=== PATIENT | female | born 1955 | race Caucasian/White ===

== ENCOUNTER 2016-09-12 10:55 | Emergency (ER) | payer OTHER ==
[~2016-09-12] VITALS: Ht 165.1 cm; Wt 65.6 kg
[2016-09-12 11:01] VITALS: BP 146/85; PULSE 77; RESP 16; TEMP 98.7; O2SAT 97
--- NOTE | 2016-09-12 11:38 | PD ---
HPI Chief Complaint: Pain: Acute or Chronic Time Seen by Provider: 11:37 Travel History International Travel<30 days: Yes Contact w/Intl Traveler<30days: Yes Name of Country Traveled to: [place] Traveled to known affect area: No History of Present Illness HPI 61-year-old female presents the emergency department with reports of right breast and chest pain which has been occurring over the past week. Patient denies any specific history of trauma. Patient is visiting from [place], having flown in one week ago. Patient denies lower extremity pain, cramping, or edema. Patient describes the pain as a burning which comes and goes in the right breast, although she describes a feeling of a band around the chest yesterday. Patient states doesn't seem to be worse with exertion but it is worse with a deep breath, and with leaning forward. Patient is concerned she is flying back to [place] tomorrow morning and wants to make sure everything is okay prior to getting on the plane. He has no history of cardiac issues in the past. She has no known drug allergies. PFSH Past Medical History Medical History: Denies Significant Hx Hx Anticoagulant Therapy: No Diminished Hearing: No Immunizations Current: Yes Tetanus Vaccination: Unknown Influenza Vaccination: No ?: Not Menopausal: Yes Past Surgical History Other Surgery: Yes (MELENOMA STOMACHE) Social History Alcohol Use: Yes (OCC) Tobacco Use: No Substance Use: No Allergies-Medications (Allergen,Severity, Reaction): Coded Allergies: No Known Allergies (Unverified , 09/12/16) Reported Meds & Prescriptions Reported Meds & Active Scripts Active No Active Prescriptions or Reported Medications Review of Systems Except as stated in HPI: all other systems reviewed are Neg General / Constitutional: No: Fever Eyes: No: Visual changes HENT: No: Headaches Cardiovascular: Positive: Chest Pain or Discomfort, No: Palpitations, Irregular Rhythm, Tachycardia, Diaphoresis, Syncope, Dyspnea on exertion, Edema , Claudication Respiratory: No: Cough (see history present illness.), Shortness of Breath, Wheezing Gastrointestinal: No: Abdominal Pain Genitourinary: No: Dysuria Musculoskeletal: No: Pain Skin: No Rash Neurologic: No: Weakness Psychiatric: No: Depression Endocrine: No: Polydipsia Hematologic/Lymphatic: No: Easy Bruising Physical Exam Narrative GENERAL: Patient appears somewhat anxious but otherwise in no acute distress. SKIN: Warm and dry. Normal color. Normal turgor. Right breast is examined with nursing staff supervisor dry cell assembly, showing no obvious signs of infection, rash, or discharge. There is no specific point tenderness. HEAD: Atraumatic. Normocephalic. EYES: Pupils equal and round. No scleral icterus. No injection or drainage. ENT: No nasal bleeding or discharge. Mucous membranes pink and moist. Pharynx is clear. NECK: Trachea midline. Supple and nontender. CARDIOVASCULAR: Regular rate and rhythm. No murmurs gallops or rubs. RESPIRATORY: No accessory muscle use. Clear to auscultation. Breath sounds equal bilaterally. GASTROINTESTINAL: Abdomen soft, non-tender, nondistended. Hepatic and splenic margins not palpable. MUSCULOSKELETAL: Extremities without clubbing, cyanosis, or edema. No obvious deformities. Negative Homans sign bilaterally. NEUROLOGICAL: Awake and alert. No obvious cranial nerve deficits. Motor grossly within normal limits. Five out of 5 muscle strength in the arms and legs. Normal speech. PSYCHIATRIC: Appropriate mood and affect; insight and judgment normal. Data Data Last Documented VS Vital Signs Date Time Temp Pulse Resp B/P Pulse Ox O2 Delivery O2 Flow Rate FiO2 09/12/16 12:25 68 18 169/79 94 Room Air 161/79 09/12/16 11:01 98.7 Orders Electrocardiogram (09/12/16 11:54) Ckmb (Isoenzyme) Profile (09/12/16 11:54) Complete Blood Count With Diff (09/12/16 11:54) Comprehensive Metabolic Panel (09/12/16 11:54) Magnesium (Mg) (09/12/16 11:54) Prothrombin Time / Inr (Pt) (09/12/16 11:54) Act Partial Throm Time (Ptt) (09/12/16 11:54) Troponin I (09/12/16 11:54) Ecg Monitoring (09/12/16 11:54) Bilateral Bp Monitoring (09/12/16 11:54) Iv Access Insert/Monitor (09/12/16 11:54) Oximetry (09/12/16 11:54) Oxygen Administration (09/12/16 11:54) Aspirin Chew (Aspirin Chew) (09/12/16 12:00) Sodium Chloride 0.9% Flush (Ns Flush) (09/12/16 12:00) Ct Pulmonary Angiogram (09/12/16 11:54) Iohexol 350 Inj (Omnipaque 350 Inj) (09/12/16 13:04) Labs Laboratory Tests Test 09/12/16 12:00 White Blood Count 7.8 TH/MM3 Red Blood Count 4.66 MIL/MM3 Hemoglobin 13.8 GM/DL Hematocrit 41.0 % Mean Corpuscular Volume 88.0 FL Mean Corpuscular Hemoglobin 29.7 PG Mean Corpuscular Hemoglobin 33.7 % Concent Red Cell Distribution Width 12.1 % Platelet Count 269 TH/MM3 Mean Platelet Volume 8.8 FL Neutrophils (%) (Auto) 66.1 % Lymphocytes (%) (Auto) 26.5 % Monocytes (%) (Auto) 6.4 % Eosinophils (%) (Auto) 0.4 % Basophils (%) (Auto) 0.6 % Neutrophils # (Auto) 5.2 TH/MM3 Lymphocytes # (Auto) 2.1 TH/MM3 Monocytes # (Auto) 0.5 TH/MM3 Eosinophils # (Auto) 0.0 TH/MM3 Basophils # (Auto) 0.0 TH/MM3 CBC Comment DIFF FINAL Differential Comment Prothrombin Time 10.7 SEC Prothromb Time International 1.0 RATIO Ratio Activated Partial 27.8 SEC Thromboplast Time Sodium Level 143 MEQ/L Potassium Level 3.5 MEQ/L Chloride Level 104 MEQ/L Carbon Dioxide Level 30.9 MEQ/L Anion Gap 8 MEQ/L Blood Urea Nitrogen 11 MG/DL Creatinine 0.60 MG/DL Estimat Glomerular Filtration 102 ML/MIN Rate Random Glucose 106 MG/DL Calcium Level 8.8 MG/DL Magnesium Level 2.5 MG/DL Total Bilirubin 0.4 MG/DL Aspartate Amino Transf 12 U/L (AST/SGOT) Alanine Aminotransferase 16 U/L (ALT/SGPT) Alkaline Phosphatase 69 U/L Total Creatine Kinase 64 U/L Troponin I LESS THAN 0.02 NG/ML Total Protein 7.5 GM/DL Albumin 3.8 GM/DL [facility] Medical Decision Making Medical Screen Exam Complete: Yes Emergency Medical Condition: Yes Differential Diagnosis Right breast/chest pain. Possible cardiac syndrome. Possible PE. Muscle skeletal pain. Narrative Course Patient is medically stable at time of exam. Patient is discussed with Dr. Carrasquillo. Labs ordered including CBC, CMP, and cardiac panel. EKG is ordered as well as CT angiogram. EKG shows normal sinus rhythm with nonspecific ST changes. This is reviewed by Dr. Carrasquillo. IV access is obtained. CBC is unremarkable. CMP is unremarkable. Coagulation studies are normal. Troponin is less than 0.02. CTA is unremarkable for acute process. Patient is felt stable to be discharged home and return if without concern. Patient will be given ibuprofen 600 mg 4 times a day when necessary pain. Patient should follow with her primary care physician on return to [place] as needed. Diagnosis Primary Impression: Chest pain, atypical Referrals: Primary Care Physician Patient Instructions: Chest Pain (DC), General Instructions Additional Instructions: CBC is unremarkable. CMP is unremarkable. Coagulation studies are normal. Troponin is less than 0.02. CTA is unremarkable for acute process. Patient is felt stable to be discharged home and return if without concern. Patient will be given ibuprofen 600 mg 4 times a day when necessary pain. Patient should follow with her primary care physician on return to [place] as needed. Med/Other Pt SpecificInfo: Prescription(s) given Scripts No Active Prescriptions or Reported Meds Disposition: DISCHARGE HOME Condition: Stable Rogers Ivan September 12, 2016 11:38
[2016-09-12] MEDS ORDERED: ASPIRIN 81 MG CHEW TAB PO ONE (12:00)
[2016-09-12] MEDS ORDERED: SODIUM CHLORIDE 0.9% FLUSH 10 ML FLUSH IVF PRN (12:00)
[2016-09-12 12:08] LABS: AUTOMATED NEUTROPHIL # 5.2 TH/MM3 (1.8-7.7); BASOPHIL % 0.6 % (0.0-2.0); EOSINOPHIL % 0.4 % (0.0-4.0); HEMO FLAGS DIFF FINAL; LYMPH % 26.5 % (9.0-44.0); LYMPHOCYTE # 2.1 TH/MM3 (1.0-4.8); MEAN CORPUSCULAR HEMOGLOBIN 29.7 PG (27.0-34.0); MEAN CORPUSCULAR HGB CONC 33.7 % (32.0-36.0); MONO % 6.4 % (0.0-8.0); NEUT % 66.1 % (16.0-70.0); PLATELET COUNT 269 TH/MM3 (150-450); RED BLOOD COUNT 4.66 MIL/MM3 (4.00-5.30); RED CELL DISTRIBUTION WIDTH 12.1 % (11.6-17.2); WHITE BLOOD COUNT 7.8 TH/MM3 (4.0-11.0)
[2016-09-12 12:18] LABS: CHLORIDE 104 MEQ/L (98-107); POTASSIUM 3.5 MEQ/L (3.5-5.1); SODIUM (NA) 143 MEQ/L (136-145)
[2016-09-12 12:22] LABS: ANION GAP 8 MEQ/L (5-15); APTT (PATIENT) 27.8 SEC (24.3-30.1); BICARBONATE 30.9 MEQ/L (21.0-32.0); BLOOD UREA NITROGEN 11 MG/DL (7-18); MAGNESIUM 2.5 MG/DL (1.5-2.5); PROTHROMBIN TIME - PATIENT 10.7 SEC (9.8-11.6)
[2016-09-12 12:25] VITALS: BP_SYST 161; BP_SYST 169; BP_DIAS 79; PULSE 68; RESP 18; O2SAT 94
[2016-09-12 12:25] LABS: ALT (GPT) 16 U/L (10-53); AST (GOT) 12 U/L (15-37); GLOMERULAR FILTRATION RATE 102 ML/MIN (>89)
[2016-09-12 12:26] LABS: TOTAL BILIRUBIN ADULT 0.4 MG/DL (0.2-1.0)
[2016-09-12 12:27] LABS: ALKALINE PHOSPHATASE 69 U/L (45-117)
[2016-09-12 12:32] LABS: CREATINE KINASE 64 U/L (26-192)
[2016-09-12] MEDS ORDERED: IOHEXOL 350 MG/ML 10 ML VIAL (for RAD DIAG) IV ONE (13:04)
--- NOTE | 2016-09-12 13:11 | RADHPO ---
EXAM DATE/TIME: 09/12/2016 12:51 [facility] COMPARISON: No previous studies available for comparison. INDICATIONS : Right chest pain. IV CONTRAST: 65 cc Omnipaque 350 (iohexol) IV RADIATION DOSE: 9.57 CTDIvol (mGy) MEDICAL HISTORY : None SURGICAL HISTORY : Orthopedic surgery. ENCOUNTER: Initial ACUITY: 1 day PAIN SCALE: 4/10 LOCATION: Right chest TECHNIQUE: Volumetric scanning of the chest was performed using a pulmonary embolism protocol MIP images were re constructed. Using automated exposure control and adjustment of the mA and/or kV according to patien t size, radiation dose was kept as low as reasonably achievable to obtain optimal diagnostic quality images. FINDINGS: PULMONARY ARTERIES: No filling defects are seen in the pulmonary arteries through the segmental level. LUNGS: There is no consolidation or pneumothorax . No concerning pulmonary nodule is visualized. Density in the posterior right lung abutting the pleura. Minimal scarring right middle lobe and lingula. PLEURAE: There is no pleural thickening or pleural effusion. MEDIASTINUM: There is good visualization of the great vessels of the middle mediastinum. No evidence of mediastin al or hilar adenopathy/mass. MUSCULOSKELETAL: Within normal limits for patient age. MISCELLANEOUS: The visualized upper abdominal organs demonstrate no acute abnormality. CONCLUSION: 1. No evidence for pulmonary embolism. 2. Small density in the posterior right lower lobe abutting the pleura likely benign. 3. Minimal scarring right middle lobe and lingula. Mk Fink MD on September 12, 2016 at 13:06 Board Certified Radiologist. This report was verified electronically.
[2016-09-12 13:17] VITALS: BP 151/82; PULSE 75; RESP 18; O2SAT 97
[2016-09-12] MEDS ORDERED: IBUP-232 PO (13:18)
--- NOTE | 2016-09-13 15:55 | EKG ---
Date Performed: 09/12/2016 Time Performed: 12:01:38 PTAGE: 61 years EKG: Sinus rhythm Possible anterior infarct - age undetermined Inferior/lateral ST-T changes are nonspecific, but cons ider ischemia Abnormal ECG NO PREVIOUS TRACING DOCTOR: Wilfredo Gore Interpretating Date/Time 09/13/2016 15:54:33
== END 2016-09-12 13:40 | disposition home or self-care (01) ==
LOC: PHEFT 10:55
DX: R07.89 Other chest pain (principal); N64.4 Mastodynia; R94.31 Abnormal electrocardiogram [ECG] [EKG]
CPT/HCPCS: 71275; 80053; 82550; 83735; 84484; 85025; 85610; 85730; 93005; 99285; Q9967